=== PATIENT | male | born 1995 | race Caucasian/White ===

== ENCOUNTER 2017-04-08 06:32 | Emergency (ER) | payer OTHER ==
[~2017-04-08] VITALS: Ht 167.6 cm; Wt 84.1 kg
[2017-04-08] MEDS ORDERED: IBUP-1114 PO (07:02)
--- NOTE | 2017-04-08 10:01 | REP ---
RIGHT LOWER LEG: AP and lateral views of the right lower leg are performed. There is a fracture of the mid fibula with slight medial displacement. No other acute fracture or dislocation is seen. IMPRESSION: Slightly displaced fracture mid fibula. Signed by Jayesh Salas MD 04/08/2017 08:17 P
--- NOTE | 2017-04-08 10:02 | REP ---
RIGHT CALCANEUS: Two views of the right calcaneus are performed and demonstrate no fracture, dislocation or intrinsic bone disease. IMPRESSION: No fracture or dislocation. Signed by Jayesh Salas MD 04/08/2017 08:17 P
[2017-04-08] MEDS ORDERED: IBUP80TA PO (10:21)
[2017-04-08 10:38] VITALS: BP 136/82
== END 2017-04-08 10:39 | disposition home or self-care (01) ==
LOC: M ED 07:38
DX: S82.401A Unspecified fracture of shaft of right fibula, initial encounter for closed fracture (principal); W18.09XA Striking against other object with subsequent fall, initial encounter; Y92.019 Unspecified place in single-family (private) house as the place of occurrence of the external cause; Y93.89 Activity, other specified; Y99.8 Other external cause status; F17.200 Nicotine dependence, unspecified, uncomplicated; Z88.0 Allergy status to penicillin